=== PATIENT | female | born 1955 | race Caucasian/White ===

== ENCOUNTER 2018-10-04 05:25 | Day surgery (SDC) | payer OTHER ==
[2018-10-04 06:41] VITALS: BMI 32.5
[2018-10-04] MEDS ORDERED: PROPOFOL 20 ML ONE ×5 (07:18)
[2018-10-04] MEDS ORDERED: SUCCINYLCHOLINE CHLORIDE 200 MG/10 ML VIAL ONE (07:19)
[2018-10-04] MEDS ORDERED: ROPIVACAINE HCL 0.5% 30ML VIAL ONE (07:26)
[2018-10-04] MEDS ORDERED: MIDAZOLAM HCL 2 MG/2 ML SINGLE DOSE VIAL ONE ×2 (07:27)
[2018-10-04] MEDS ORDERED: ceFAZolin SODIUM 1 GM VIAL IVPB ONE (08:30)
[2018-10-04] MEDS ORDERED: ePHEDrine SULFATE 50 MG/1 ML AMPULE ONE (08:31)
[2018-10-04] MEDS ORDERED: ceFAZolin SODIUM 1 GM VIAL ONE (08:36)
[2018-10-04] MEDS ORDERED: DEXAMETHASONE SOD PHOSPHATE 4 MG/1 ML VIAL ONE (08:36)
[2018-10-04] MEDS ORDERED: ACETAMINOPHEN 1000 MG/100 ML VIAL (NON FORMULARY) IVPB PRN (08:45)
[2018-10-04] MEDS ORDERED: LACTATED RINGERS SOLUTION 1,000 ML IV SCH (08:45)
[2018-10-04] MEDS ORDERED: ONDANSETRON 4 MG/2 ML VIAL IVPUSH PRN (08:45)
[2018-10-04] MEDS ORDERED: DESFLURANE GAS 240 ML BOTTLE IH ONE (09:02)
--- NOTE | 2018-10-04 09:40 | HP ---
Satellite H - Chief Complaint Chief Complaint: left shoulder pain - Past Medical History Allergies/Adverse Reactions: Allergies Allergy/AdvReac Type Severity Reaction Status Date / Time codeine [Codeine] Allergy Swelling Verified 10/04/18 06:52 - Current Medications Current Medications: Home Medications Medication Instructions Recorded Efavirenz/Emtricit/Tenofovr Df 1 each PO HS 01/05/12 [Atripla Tablet] Losartan/Hydrochlorothiazide 1 each PO DAILY 01/06/12 [Hyzaar 100-25 Tablet] Gabapentin [Neurontin] 300 mg PO HS 02/19/14 Colchicine [Colcrys] 0.6 mg PO DAILY 09/27/15 Indomethacin [Indocin -] 50 mg PO Q6H PRN 09/27/15 Oxycodone HCl/Acetaminophen 1 each PO TID #30 tablet MDD 3 10/04/18 [Percocet 10-325 mg Tablet] Satellite Physical Exam - Physical Examination Vital Signs: Vital Signs Period Temp Pulse Resp BP Sys/Castro Pulse Ox Last 24 Hr 98.1 F-98.1 F 78-78 20-20 157-157/69-69 97 General Appearance: Well Nourished, Well Developed, Alert & Oriented x3 ENT: Clear Lung: Normal air movement Heart: Regular rate & rhythm Extremities: Other (left shoulder- + ttp, decr rom, + neer, + berrios, + obriens , nvi MRI + impingement) Neurological: Intact, Alert, Oriented Satellite Impression/Plan - Impression/Plan Impression: left shoulder impingement, internal derangement Operative Procedure: left shoulder arthroscopy with SAD Date to be Performed: 10/04/18
--- NOTE | 2018-10-04 09:41 | OP ---
Operative Note - Note: Operative Date: 10/04/18 ([facility]) Pre-Operative Diagnosis: left shoulder internal derangement Operation: left shoulder arthroscopy with labral repair, SAD, DCE Post-Operative Diagnosis: Other (labral tear) Surgeon: Wilfrid Aldridge Supervisor Speech: Joseph García Anesthesiologist/GALLERY OR MUSEUM CURATOR: Todd Turner Anesthesia: General, Local Specimens Removed: shavings Estimated Blood Loss (mls): 5 Operative Report Dictated: Yes
--- NOTE | 2018-10-04 12:00 | SPEC ---
DATE OF OPERATION: 10/04/2018 PREOPERATIVE DIAGNOSES: Right shoulder impingement syndrome and shoulder pain. POSTOPERATIVE DIAGNOSES: Right shoulder impingement syndrome and shoulder pain plus labral tear. PROCEDURE: Right shoulder arthroscopy, subacromial decompression, distal clavicle excision and arthroscopic labral repair. SURGEON: Lashanda Medrano MD TELECOM SPECIALIST: ARTIS Ross THORACIC SURGEON: Adrian Medina CRNA ANESTHESIA: Right interscalene block with LMA anesthesia. DRAINS: None. COMPLICATIONS: None. BLOOD LOSS: Minimal. BLOOD GIVEN: None. FLUID REPLACEMENT: Plasma-Lyte 700 mL. This patient is a 63-year-old female with a preoperative diagnosis of right shoulder pain and impingement syndrome. After understanding the potential risks, complications, alternatives and benefits of surgery versus nonsurgical treatment the patient elected to undergo this procedure. The patient was brought to the operating room. Peripheral IV placed. IV sedation given. IV Ancef 1 gm was given. Right interscalene block was performed. LMA anesthesia was induced. She was placed into the beach-chair position with ample padding throughout. The right upper extremity was prepped and draped in a sterile fashion. The bony landmarks were marked out with a marking pen. A posterior portal was established. A diagnostic glenohumeral arthroscopy was performed. Immediately it was apparent the patient had a labral rear from the 12 o'clock to the 3 o'clock position. The rest of the joint looked good. The glenoid, the humeral head, the undersurface of the rotator cuff all looked good. A spinal needle was used to establish an anterior portal. A probe was introduced into the joint and that portion of the labrum easily came up off the rim of the glenoid with some degenerative fraying around it and clearly was torn. Therefore, a brandi and a rasp were used to prepare the bony bed. A shaver was used to remove the frayed portions of the labrum. Again it was probed. It was seen to be a very good tissue quality, just torn off the bone. Then in the standard fashion I used an Arthrex PushLock anchor to do an arthroscopic labral repair. After 1 anchor it was quite stable. Photographs were taken before and after. It was probed. It was quite stable. Next our attention turned to the subacromial space. The patient had a tremendous amount of inflammatory bursitis. A lateral portal was established under direct visualization using a spinal needle and an ArthroCare wand used to do a soft tissue bursectomy. This revealed the patient had 3 large spurs, 1 on the undersurface of the acromion, 1 on the distal clavicle and the patient also had an os acromiale anteriorly with a large subacromial spur. Therefore, the 5.5-mm oval bur was used to take down all three spurs. They were all fine tuned in reverse and then straightened up with a shaver. All debris was removed with the shaver. I directly visualized the rotator cuff from above and put the arm through a full range of motion. There was no top surface rotator cuff tear. Photographs were taken of the decompression. It looked quite good. There was a lot of room for the rotator cuff through all motion. All instrumentation was removed. The excess saline and debris were removed. The arthroscopy portals were closed with 3-0 nylon sutures. The area was then washed and dried, covered with Aquacel dressing. The patient was put into a shoulder immobilizer, brought to the ambulatory recovery room. Total operative time was about 45 minutes. There were no complications during the case. The patient tolerated the procedure quite well. LASHANDA MEDRANO M.D. [id number]
[2018-10-04 13:22] VITALS: TEMP 97.5
[2018-10-04 13:25] VITALS: BP 116/62; PULSE 78
--- NOTE | 2018-10-05 16:39 | PATH ---
Surgical Pathology Report Patient Name: KEATON BARCENAS Med. Rec. #: [id number] /Age/Gender: 1955 (Age: 63) / F Account: [id number] Location: [facility] SURGICAL Taken: 10/04/2018 Received: 10/04/2018 Reported: 10/05/2018 Physicians: Wilfrid Aldridge M.D. Specimen(s) Received RIGHT SHOULDER SHAVINGS Clinical History Impingement right shoulder Final Diagnosis SHOULDER SHAVINGS, RIGHT, ARTHROSCOPY: FRAGMENTS OF BENIGN CARTILAGE, BONE, DENSE FIBROCONNECTIVE TISSUE, ADIPOSE TISSUE, AND SKELETAL MUSCLE. RARE NODULAR CALCIFIC AGGREGATE CONSISTENT WITH CHONDROCALCINOSIS PRESENT. Electronically Signed Barbara Hammer M.D. Gross Description Received in formalin labeled "shavings right shoulder" are multiple fragments of white-perea fibrocartilaginous soft tissue measuring 4 x 4 x 2 cm aggregate. [employer] Sales Consultant sections are submitted in one cassette. MLSZ/10/04/2018 [email or web address]/10/04/2018
== END 2018-10-04 13:20 | disposition home or self-care (01) ==
LOC: JASU-SURG 05:25
PROVIDERS: ATTEND Orthopaedic Surgery
PROC: 0RNJ4ZZ Release Right Shoulder Joint, Percutaneous Endoscopic Approach (ICD-10-PCS; 2018-10-04)
PROC: 0PB94ZZ Excision of Right Clavicle, Percutaneous Endoscopic Approach (ICD-10-PCS; principal; 2018-10-04 08:00)
DX: M75.41 Impingement syndrome of right shoulder (principal); M25.511 Pain in right shoulder; M24.111 Other articular cartilage disorders, right shoulder
CPT/HCPCS: 88304-TC; 94760

== ENCOUNTER 2020-08-26 10:55 | Emergency (ER) | payer OTHER ==
[2020-08-26 11:10] VITALS: BP 149/59; PULSE 98; BMI 31.1
== END 2020-08-26 11:57 | disposition home or self-care (01) ==
LOC: JERFT 10:55
DX: M79.644 Pain in right finger(s) (principal); M05.9 Rheumatoid arthritis with rheumatoid factor, unspecified
CPT/HCPCS: 73130-TC-RT-FY; 73140-TC-RT-FY; 99284-25